=== PATIENT | female | born 1980 | race Caucasian/White ===

== ENCOUNTER 2022-12-16 14:34 | Emergency (ER) | payer MEDICAID ==
[~2022-12-16] VITALS: Ht 175.3 cm; Wt 90.9 kg
[~2022-12-16 14:34] MED LIST: FLEXERIL 1010 MG/TAB PO; LASIX 20MG TABL20 MG PO; PRINIVIL5 MG PO
[2022-12-16] MEDS ORDERED: COREG 3.123.125 MG/T PO (14:47)
[2022-12-16 15:05] LABS: BASO % 0.5 % (0.0-2.0); EOS # 0.1 K/mm3 (0.0-0.7); EOS % 0.6 % (0.0-4.0); HEMATOCRIT 45.1 % (37.0-47.0); HEMOGLOBIN 15.8 g/dl (12.5-16.0); LYMPH # 1.5 K/mm3 (1.2-3.4); LYMPH % 18.4 % (20.0-51.0); MEAN CELL VOLUME 84 fl (80.0-100.0); MEAN CORPUSCULAR HEMOGLOBIN 30 pg (27-31); MEAN CORPUSCULAR HGB CONC 35 g/dl (33.0-37.0); MEAN PLATELET VOLUME 8.8 fl (7.4-10.4); MONO # 0.6 K/mm3 (0.1-0.6); MONO % 7.1 % (1.7-9.3); PLATELET COUNT 214 K/mm3 (130-400); RED BLOOD COUNT 5.35 M/mm3 (4.10-5.30); REDCELL DISTRIBUTION WIDTH-CV 12.8 % (11.5-14.5)
[2022-12-16 15:28] LABS: ALANINE AMINOTRANSFERASE 15 U/L (0-55); ALBUMIN 4.1 gm/dL (3.5-5.0); ALKALINE PHOSPHATASE 65 U/L (40-150); ANION GAP 9 mmol/L (7-16); AST,SGOT 15 U/L (5-34); BLOOD UREA NITROGEN 13 mg/dL (7-19); CALCIUM 9.4 mg/dL (8.4-10.2); CARBON DIOXIDE 20 mmol/L (22-29); CHLORIDE 109 mmol/L (98-107); CREATININE, serum 0.83 mg/dL (0.57-1.11); GLUCOSE 126 mg/dL (70-99); POTASSIUM 4.2 mmol/L (3.5-4.5); SODIUM 138 mmol/L (136-145); TOTAL PROTEIN 7.6 gm/dL (6.2-8.1)
[2022-12-16 15:43] LABS: TROPONIN-I < 0.010 ng/mL (0.00-0.033)
[2022-12-16] MEDS ORDERED: PRINIVIL5 MG PO (17:12)
[2022-12-16 17:34] VITALS: BP 154/98; PULSE 70; TEMP 98.3
== END 2022-12-16 18:09 | disposition home or self-care (01) ==
LOC: COL.ER 14:34
PROVIDERS: Physician Assistant
DX: I11.0 Hypertensive heart disease with heart failure (principal); I50.9 Heart failure, unspecified; Z79.899 Other long term (current) drug therapy; Z91.128 Patient's intentional underdosing of medication regimen for other reason; Z28.310 Unvaccinated for COVID-19